=== PATIENT | female | born 1970 | race Caucasian/White ===

== ENCOUNTER → 2016-09-18 | Outpatient (CLI) | payer BC, MEDICARE ==
[~2016-09-18] MED LIST: ABILIFY MAINTE300 M1; ABILIFY5 MG PO; AMANTADINE100 M1; BUPROPION XL300 M1; CYMBALTA PO; DIFLUCAN PO; HYDROXYZINE HCL25 M1; INVOKANA300 MG PO; JANUVIA PO; KLONOPIN1 MG PO; MACROBID100 M1 PO; MACROBID100 MG PO; METFORMIN HCL1000 M1 PO; METFORMIN HCL500 M1 PO; METFORMIN PO; METRONIDAZOLE PO; MONISTAT 11 EACH VAG; PYRIDIUM PO; SEROQUEL XR50 MG PO; SKELAXIN PO; SYNTHROID125 PO; VOLTAREN75 MG PO; WELLBUTRIN PO
--- NOTE | ~2016-09-18 | CR61 ---
[facility] A Service of [facility] [place] RADIOLOGY TEXT RESULTS PATIENT: MITCH BALLARD LOCATION: [facility] : 72 UNIT #: [id number] AGE: [address]: ROBB NAGEL MD SEX: F ORDER DR: [id number] [facility] [address] [place], [place] [address] [id number] O MR#: [id number] Acc #: [id number] NAME: MITCH BALLARD : 1970 SEX: F STUDY DATE/TIME: 09/18/2016 11:41 UNIT: [facility] ROOM: STUDY DESCRIPTION: CR Cervical Spine Min 5 Views Attending Physician: Robb Nagel M.D. Referring Physician: Robb Nagel M.D. Ordering Physician: Robb Ngael M.D. Primary Care Physician: [facility] MEDICAL IMAGING REPORT This report is preliminary unless electronic signature is present EXAM Cervical spine series 5 views 09/18/16 COMPARISON: None HISTORY Neck and upper back and left arm tingling paresthesias for two months. FINDINGS There is mild discogenic change but no acute abnormality. Alignment is normal. There is no prevertebral swelling or fracture. IMPRESSION Mild degenerative change without acute abnormality. Dictated by... Lance Mukherjee M.D. THIS IS AN ELECTRONICALLY VERIFIED REPORT Lance Mukherjee M.D. at 09/20/2016 3:58 PM COREEN/fabiana TD: 09/18/2016 15:27 JOB #: [id number] MEDICAL IMAGING REPORT Page 1 of 1 COPY
== END | disposition home or self-care (01) ==
LOC: CRAD 11:05
DX: M54.2 Cervicalgia (principal); M47.892 Other spondylosis, cervical region
CPT/HCPCS: 72050

== ENCOUNTER → 2016-10-01 | Outpatient (CLI) | payer BC, MEDICARE | END | disposition home or self-care (01) | LOC: CLAB 11:38 | DX: H53.2 Diplopia (principal); R51 Headache | CPT/HCPCS: 83519 ==

== ENCOUNTER 2016-12-21 21:43 | Emergency (ER) | payer BC, MEDICARE ==
[~2016-12-21] VITALS: Ht 167.6 cm; Wt 102.0 kg
[~2016-12-21 21:43] MED LIST changes: -ABILIFY MAINTE300 M1; -AMANTADINE100 M1; -BUPROPION XL300 M1; -HYDROXYZINE HCL25 M1
[2016-12-21] MEDS ORDERED: HYDROXYZINE HCL25 M1 (21:51)
[2016-12-21] MEDS ORDERED: AMANTADINE100 M1 (21:51)
[2016-12-21] MEDS ORDERED: BUPROPION XL300 M1 (21:52)
[2016-12-21] MEDS ORDERED: ABILIFY MAINTE300 M1 (21:53)
== END 2016-12-21 22:34 | disposition home or self-care (01) ==
LOC: SED 21:43
DX: H66.91 Otitis media, unspecified, right ear (principal); J32.9 Chronic sinusitis, unspecified; Z90.710 Acquired absence of both cervix and uterus; Z98.890 Other specified postprocedural states; Z88.8 Allergy status to other drugs, medicaments and biological substances; Z79.899 Other long term (current) drug therapy
CPT/HCPCS: 99283